=== PATIENT | female | born 1950 | race Caucasian/White ===

== ENCOUNTER 2017-07-23 11:04 | Inpatient (IN) | payer MEDICARE, OTHER ==
[2017-07-23] VITALS (9 sets, daily range): BP systolic 127–145; BP diastolic 68–89; PULSE 58–70; RESP 16–18; TEMP 97.7–98.9; O2SAT 94–98
[2017-07-23] MEDS ORDERED: SYNT112T PO (11:10)
--- NOTE | 2017-07-23 11:29 | PD ---
HPI Chief Complaint: Chest Pain Time Seen by Provider: 11:24 Travel History International Travel<30 days: No Contact w/Intl Traveler<30days: No Traveled to known affect area: No History of Present Illness HPI 66-year-old female patient with history of no significant past medical issues, family history of father with SD at the age of 60, presents to the ER today because she states that she was working out in spinning class yesterday and started having a substernal chest discomfort that went away on its own. She states that she is currently discomfort free but it did occur again last night. She thought it may have worsened with eating. She denies any nausea, vomiting , abdominal pain, shortness of breath, or any other symptoms. She is currently chest pain-free. Modifying Factors: None Associated Signs & Symptoms: Chest discomfort Risk Factors: Family history of cardiac disease PFSH Past Medical History Thyroid Disease: Yes Influenza Vaccination: No ?: Not Past Surgical History Cholecystectomy: Yes Social History Alcohol Use: Yes (DAILY WINE 2 GLASSES) Tobacco Use: No Substance Use: No Allergies-Medications (Allergen,Severity, Reaction): Coded Allergies: No Known Allergies (Verified Allergy, Mild, 07/23/17) Reported Meds & Prescriptions Reported Meds & Active Scripts Active Reported Synthroid (Levothyroxine Sodium) 112 Mcg Tab 112 Mcg PO DAILY Review of Systems Except as stated in HPI: all other systems reviewed are Neg Physical Exam Narrative GENERAL: Well-developed elderly white female patient currently in mild distress. Awake and oriented 3. SKIN: Focused skin assessment warm/dry. HEAD: Atraumatic. Normocephalic. EYES: Pupils equal and round. No scleral icterus. No injection or drainage. ENT: No nasal bleeding or discharge. Mucous membranes pink and moist. NECK: Trachea midline. No JVD. CARDIOVASCULAR: Regular rate and rhythm. No murmur appreciated. Pulses are present and equal bilaterally. RESPIRATORY: No accessory muscle use. Clear to auscultation. Breath sounds equal bilaterally. GASTROINTESTINAL: Abdomen soft, non-tender, nondistended. Hepatic and splenic margins not palpable. MUSCULOSKELETAL: No obvious deformities. No clubbing. No cyanosis. No edema. NEUROLOGICAL: Awake and alert. No obvious cranial nerve deficits. Motor grossly within normal limits. Normal speech. PSYCHIATRIC: Appropriate mood and affect; insight and judgment normal. Data Data Last Documented VS Vital Signs Date Time Temp Pulse Resp B/P (MAP) Pulse Ox O2 Delivery O2 Flow Rate FiO2 07/23/17 11:29 96 07/23/17 11:29 Room Air 07/23/17 11:15 66 18 07/23/17 11:11 97.7 139/79 (99) Orders Orders Electrocardiogram (07/23/17 11:18) Complete Blood Count With Diff (07/23/17 11:18) Basic Metabolic Panel (Bmp) (07/23/17 11:18) Ckmb (Isoenzyme) Profile (07/23/17 11:18) Troponin I (07/23/17 11:18) Chest, Single Ap (07/23/17 11:18) Iv Access Insert/Monitor (07/23/17 11:18) Ecg Monitoring (07/23/17 11:18) Oxygen Administration (07/23/17 11:18) Oximetry (07/23/17 11:18) Sodium Chlor 0.9% 1000 Ml Inj (Ns 1000 M (07/23/17 11:57) Aspirin Chew (Aspirin Chew) (07/23/17 11:57) Heparin Inj (Heparin Inj) (07/23/17 11:57) Admit Order (Ed Use Only) (07/23/17 12:21) Admit To Inpatient (07/23/17 ) Vital Signs (Adult) JUSTIN.Q4H (07/23/17 12:20) Activity Bed Rest (07/23/17 12:20) Creative Services Producer / Telemetry JUSTIN.Q8H (07/23/17 12:20) Inpatient Certification (07/23/17 ) Atorvastatin (Lipitor) (07/23/17 12:30) Atorvastatin (Lipitor) (07/24/17 21:00) Labs Laboratory Tests Test 07/23/17 11:15 White Blood Count 9.0 TH/MM3 Red Blood Count 5.76 MIL/MM3 Hemoglobin 18.2 GM/DL Hematocrit 54.5 % Mean Corpuscular Volume 94.7 FL Mean Corpuscular Hemoglobin 31.6 PG Mean Corpuscular Hemoglobin Concent 33.4 % Red Cell Distribution Width 13.6 % Platelet Count 312 TH/MM3 Mean Platelet Volume 7.9 FL Neutrophils (%) (Auto) 78.1 % Lymphocytes (%) (Auto) 15.5 % Monocytes (%) (Auto) 3.6 % Eosinophils (%) (Auto) 1.6 % Basophils (%) (Auto) 1.2 % Neutrophils # (Auto) 7.1 TH/MM3 Lymphocytes # (Auto) 1.4 TH/MM3 Monocytes # (Auto) 0.3 TH/MM3 Eosinophils # (Auto) 0.1 TH/MM3 Basophils # (Auto) 0.1 TH/MM3 CBC Comment DIFF FINAL Differential Comment Blood Urea Nitrogen 13 MG/DL Creatinine 0.78 MG/DL Random Glucose 88 MG/DL Calcium Level 8.6 MG/DL Sodium Level 140 MEQ/L Potassium Level 3.7 MEQ/L Chloride Level 105 MEQ/L Carbon Dioxide Level 27.9 MEQ/L Anion Gap 7 MEQ/L Estimat Glomerular Filtration Rate 74 ML/MIN Total Creatine Kinase 50 U/L Troponin I 0.62 NG/ML [facility] Medical Decision Making Medical Screen Exam Complete: Yes Emergency Medical Condition: Yes Medical Record Reviewed: Yes Interpretation(s) EKG shows normal sinus rhythm at a rate of [address]-T wave changes in V2 through V4. Laboratory Tests Test 07/23/17 11:15 Red Blood Count 5.76 MIL/MM3 (4.00-5.30) Hemoglobin 18.2 GM/DL (11.6-15.3) Hematocrit 54.5 % (35.0-46.0) Neutrophils (%) (Auto) 78.1 % (16.0-70.0) Estimat Glomerular Filtration Rate 74 ML/MIN (>89) Troponin I 0.62 NG/ML (0.02-0.05) Differential Diagnosis ACS versus dysrhythmias versus anxiety attack versus GI Narrative Course Patient is currently chest pain-free in the ER. EKG change is concerning for underlying cardiac issues, and case was discussed with Dr. Barajas, EKG techs to Dr. Barajas who states that he is concerned. Cardiac enzymes returned with elevated troponin of 0.62. He states that he would like the patient to be admitted to medicine, heparin started, nothing by mouth, echo, and he states he is going to try to take her for catheterization for further treatment. Case was then discussed with Dr. Spencer for admission. Diagnosis Primary Impression: Chest pain Additional Impression: Non-ST elevation SD (NSTEMI) Admitting Information Admitting Physician Requests: Admit Judit Champion MD Jul 23, 2017 11:29
[2017-07-23 11:34] LABS: POTASSIUM 3.7 MEQ/L (3.5-5.1)
[2017-07-23 11:37] LABS: BICARBONATE 27.9 MEQ/L (21.0-32.0)
[2017-07-23 11:40] LABS: AUTOMATED NEUTROPHIL # 7.1 TH/MM3 (1.8-7.7); BASOPHIL # 0.1 TH/MM3 (0-0.2); BASOPHIL % 1.2 % (0.0-2.0); EOSINOPHIL # 0.1 TH/MM3 (0-0.4); EOSINOPHIL % 1.6 % (0.0-4.0); HEMATOCRIT 54.5 % (35.0-46.0); HEMO FLAGS DIFF FINAL; LYMPH % 15.5 % (9.0-44.0); LYMPHOCYTE # 1.4 TH/MM3 (1.0-4.8); MEAN CELL VOLUME 94.7 FL (80.0-100.0); MEAN CORPUSCULAR HEMOGLOBIN 31.6 PG (27.0-34.0); MEAN CORPUSCULAR HGB CONC 33.4 % (32.0-36.0); MONO % 3.6 % (0.0-8.0); NEUT % 78.1 % (16.0-70.0); PLATELET COUNT 312 TH/MM3 (150-450); RED BLOOD COUNT 5.76 MIL/MM3 (4.00-5.30); RED CELL DISTRIBUTION WIDTH 13.6 % (11.6-17.2)
--- NOTE | 2017-07-23 11:44 | RADRPT ---
EXAM DATE/TIME: 07/23/2017 11:29 [facility] COMPARISON: No previous studies available for comparison. INDICATIONS : Chest pain MEDICAL HISTORY : None. SURGICAL HISTORY : None. ENCOUNTER: Initial ACUITY: 2 days PAIN SCORE: 8/10 LOCATION: Bilateral chest FINDINGS: Lungs are hyperinflated but otherwise clear. Heart is at the upper limits of normal in size to mildly enlarged. Next next Osseous structures are intact. CONCLUSION: 1. COPD. 2. Borderline cardiomegaly. 3. No acute cardiopulmonary process. Steven Moore MD on July 23, 2017 at 11:41 Board Certified Radiologist. This report was verified electronically.
[2017-07-23] MEDS ORDERED: SODIUM CHLOR 0.9% 1000 ML INJ 1,000 ML IV ONE (11:57)
[2017-07-23] MEDS ORDERED: HEPARIN SODIUM - IV 10,000 UNITS/10 ML VIAL IV PUSH STA (11:57)
[2017-07-23] MEDS ORDERED: ASPIRIN 81 MG CHEW TAB PO STA (11:57)
[2017-07-23] MEDS ORDERED: ATORVASTATIN 40 MG TAB PO ONE (13:00)
--- NOTE | 2017-07-23 13:29 | HHI.HP ---
HPI Service [facility] Primary Care Physician Sandeep Coulter MD Admission Diagnosis non-ST elevation [place] Diagnoses: Chief Complaint: Chest pain Travel History International Travel<30 Days: No Contact w/Intl Traveler <30 Da: No Traveled to Known Affected Are: No History of Present Illness 66-year-old white female being admitted for myocardial infarction. Patient was in her usual state of health until yesterday during her spent class when she began experiencing some substernal squeezing chest pain that fluctuated up to a 8 out of 10 intensity. She said rest helped a little bit. She went home think he would go away but in the pain recurred. She did have some mild nausea but no vomiting. She denies having any fevers or chills or any shortness of breath. Due to a persistence of the pain being a 3 out of 10 this morning she decided come to the emergency room. She did not take any medications at home for the pain. She says she is a very active person on an exercise level and says she eats healthy, claims she has a good LDL and HDL profile. Review of Systems Except as stated in HPI: all other systems reviewed are Neg Past Family Social History Past Medical History Hypothyroidism Past Surgical History Cholecystectomy, ovarian cyst removal (unsure of which side) Family History Heart attack of her father in his 60s Social History Used to smoke in college, had anymore, drinks about 2 glasses of wine daily, is a retired teacher Physical Exam Vital Signs Vital Signs Date Time Temp Pulse Resp B/P (MAP) Pulse Ox O2 Delivery O2 Flow Rate FiO2 07/23/17 13:07 98.2 67 16 145/89 (107) 96 Room Air 07/23/17 11:29 96 07/23/17 11:29 96 Room Air 07/23/17 11:15 66 18 96 07/23/17 11:11 97.7 66 18 139/79 (99) 96 Physical Exam VS: Afebrile GENERAL: No acute distress, elderly white female, well-nourished SKIN: Warm and dry. EYES: . No scleral icterus. No injection or drainage. ENT: No nasal bleeding or discharge. Mucous membranes pink and moist. CARDIOVASCULAR: Regular rate and rhythm. no murmurs RESPIRATORY: No accessory muscle use. Clear to auscultation. Breath sounds equal bilaterally. GASTROINTESTINAL: Abdomen soft, non-tender, nondistended. Extremities: No clubbing, cyanosis, or edema. No obvious deformities. MUSCULOSKELETAL: No obvious deformities. grossly intact ROM with 5/5 strength in upper and lower extremities proximally. No substernal tenderness to palpation on chest wall. NEUROLOGICAL: Awake and alert. No obvious cranial nerve deficits. No facial droop nor slurred speech noted. PSYCHIATRIC: Appropriate mood and affect; insight and judgment normal. Laboratory Laboratory Tests Test 07/23/17 11:15 White Blood Count 9.0 Red Blood Count 5.76 Hemoglobin 18.2 Hematocrit 54.5 Mean Corpuscular Volume 94.7 Mean Corpuscular Hemoglobin 31.6 Mean Corpuscular Hemoglobin Concent 33.4 Red Cell Distribution Width 13.6 Platelet Count 312 Mean Platelet Volume 7.9 Neutrophils (%) (Auto) 78.1 Lymphocytes (%) (Auto) 15.5 Monocytes (%) (Auto) 3.6 Eosinophils (%) (Auto) 1.6 Basophils (%) (Auto) 1.2 Neutrophils # (Auto) 7.1 Lymphocytes # (Auto) 1.4 Monocytes # (Auto) 0.3 Eosinophils # (Auto) 0.1 Basophils # (Auto) 0.1 CBC Comment DIFF FINAL Differential Comment Blood Urea Nitrogen 13 Creatinine 0.78 Random Glucose 88 Calcium Level 8.6 Sodium Level 140 Potassium Level 3.7 Chloride Level 105 Carbon Dioxide Level 27.9 Anion Gap 7 Estimat Glomerular Filtration Rate 74 Total Creatine Kinase 50 Troponin I 0.62 Result Diagram: 07/23/17 1115 07/23/171114 Caprini VTE Risk Assessment Caprini VTE Risk Assessment: Mod/High Risk (score >= 2) Caprini Risk Assessment Model Point Value = 1 Point Value = 2 Point Value = 3 Point Value = 5 Age 41-60 Minor surgery BMI > 25 kg/m2 Swollen legs Varicose veins or History of unexplained or recurrent spontaneous Oral contraceptives or hormone replacement Sepsis (< 1 month) Serious lung disease, including pneumonia (< 1 month) Abnormal pulmonary function Acute myocardial infarction Congestive heart failure (< 1 month) History of inflammatory bowel disease Medical patient at bed rest Age 61-74 Arthroscopic surgery Major open surgery (> 45 min) Laparoscopic surgery (> 45 min) Malignancy Confined to bed (> 72 hours) Immobilizing plaster cast Central venous access Age >= 75 History of VTE Family history of VTE Factor V Leiden Prothrombin [id number] Lupus anticoagulant Anticardiolipin antibodies Elevated serum homocysteine Heparin-induced thrombocytopenia Other congenital or acquired thrombophilia Stroke (< 1 month) Elective arthroplasty Hip, pelvis, or leg fracture Acute spinal cord injury (< 1 month) Prophylaxis Regimen Total Risk Factor Score Risk Level Prophylaxis Regimen 0-1 Low Early ambulation 2 Moderate Order ONE of the following: *Sequential Compression Device (SCD) *Heparin 5000 units SQ BID 3-4 Higher Order ONE of the following medications: *Heparin 5000 units SQ TID *Enoxaparin/Lovenox 40 mg SQ daily (WT < 150 kg, CrCl > 30 mL/min) *Enoxaparin/Lovenox 30 mg SQ daily (WT < 150 kg, CrCl > 10-29 mL/min) *Enoxaparin/Lovenox 30 mg SQ BID (WT < 150 kg, CrCl > 30 mL/min) AND/OR *Sequential Compression Device (SCD) 5 or more Highest Order ONE of the following medications: *Heparin 5000 units SQ TID (Preferred with Epidurals) *Enoxaparin/Lovenox 40 mg SQ daily (WT < 150 kg, CrCl > 30 mL/min) *Enoxaparin/Lovenox 30 mg SQ daily (WT < 150 kg, CrCl > 10-29 mL/min) *Enoxaparin/Lovenox 30 mg SQ BID (WT < 150 kg, CrCl > 30 mL/min) AND *Sequential Compression Device (SCD) Assessment and Plan Assessment and Plan 66-year-old white female being admitted for an NSTEMI. I independently reviewed EKG and it does so signs of significant T-wave inversion within the anterior leads. Troponin is elevated significantly. Patient will be transferred to cardiac intensive care with possible plan for cardiac catheterization today. Heparin has already been started as well as aspirin. I will dose the patient with high intensity of atorvastatin and Lopressor. We'll continue the patient's home Synthroid. Cardiology consulted. D /w ER attending. Trend troponins. Telemery. Case d/w pt. Physician Certification 2 Midnight Certification Type: Admission for Inpatient Services Order for Inpatient Services The services are ordered in accordance with Medicare regulations or non- Medicare payer requirements, as applicable. In the case of services not specified as inpatient-only, they are appropriately provided as inpatient services in accordance with the 2-midnight benchmark. Estimated LOS (days): 2 2 days is the estimated time the patient will need to remain in the hospital, assuming treatment plan goals are met and no additional complications. Post-Hospital Plan: Home Mauricio Spencer MD Jul 23, 2017 13:29
[2017-07-23] MEDS ORDERED: METOPROLOL TARTRATE 25 MG TAB PO ONE (14:00)
[2017-07-23] MEDS ORDERED: HEPARIN-D5W 25,000 U/250 ML 250 ML IV PRN (14:00)
[2017-07-23 14:28] LABS: HEMATOCRIT 58.8 % (35.0-46.0); MEAN CELL VOLUME 95.1 FL (80.0-100.0); MEAN CORPUSCULAR HEMOGLOBIN 30.5 PG (27.0-34.0); MEAN CORPUSCULAR HGB CONC 32.1 % (32.0-36.0); PLATELET COUNT 314 TH/MM3 (150-450); RED BLOOD COUNT 6.19 MIL/MM3 (4.00-5.30); REVIEW FLAG FINAL; WHITE BLOOD COUNT 9.2 TH/MM3 (4.0-11.0)
[2017-07-23 14:35] LABS: APTT (PATIENT) 24.7 SEC (24.3-30.1); INTERNATIONAL NORMALIZED RATIO 1.1 RATIO; PROTHROMBIN TIME - PATIENT 11.4 SEC (9.8-11.6)
[2017-07-23] MEDS: LEVOTHYROXINE SODIUM 112 MCG TAB PO SCH (15:17)
--- NOTE | 2017-07-23 15:47 | PD.CONS ---
HPI Consult Requested By Primary Care Physician Sandeep Coulter MD History of Present Illness 66 y/o F with pmhx significant for hypothyroidism and family hx of CAD who her usual state of health until yesterday during her spinning class when she began experiencing substernal squeezing chest pain 8/10 intensity relieved by rest. She went home think he would go away however pain recurred. Pain was associated mild nausea but no vomiting. Denies having any fevers or chills or any shortness of breath. Due to a persistence of the pain being a 3 out of 10 this morning she decided come to the emergency room. In the ER she was found to have elevated troponin/ Cardiology consulted for evaluation and management of ACS. Review of Systems Consitutional: DENIES: Fatigue, Fever, Chills, Weight gain, Weight loss Eyes: DENIES: Amaurosis Fugax, Change in vision HEENT: DENIES: Lightheadedness, Change in hearing Respiratory: COMPLAINS OF: See HPI, Shortness of breath, DENIES: Cough, Snoring , Wheezing, Sputum production Cardiovascular: COMPLAINS OF: See HPI, Chest pain, DENIES: Palpitations, Syncope, Tachycardia Gastrointestinal: COMPLAINS OF: Nausea, DENIES: Vomiting, Change in bowel habits, Reflux, Bloody stools, Melena Genitourinary: DENIES: Urinary incontinence, Difficulty voiding Integumentary: DENIES: Rash Neurologic: DENIES: Tingling or numbness, Memory problems, Poor Balance, Stroke symptoms Musculoskeletal: DENIES: Joint pain, Muscle pain, Limited range of motion, Back pain Psychiatric: DENIES: Anxiety, Depression, Sleep disturbances Hematologic: DENIES: Bruising tendencies, Bleeding tendencies Endocrine: DENIES: Weight gain, Weight loss, Thyroid disease Past Family Social History Allergies: Coded Allergies: No Known Allergies (Unverified , 07/23/17) Past Medical History Hypothyroidism Past Surgical History Cholecystectomy, ovarian cyst removal (unsure of which side) Reported Medications Reported Meds & Active Scripts Active Reported Synthroid (Levothyroxine Sodium) 112 Mcg Tab 112 Mcg PO DAILY Active Ordered Medications Current Medications Medications (Trade) Dose Ordered Sig/Keven Route Start Time Stop Time Status Last Admin (Lipitor) 40 mg HS PO 07/24/17 21:00 (Synthroid) 112 mcg DAILY@0600 PO 07/23/17 14:00 07/23/17 15:17 (Heparin Inj) 5,000 units UNSCH PRN IV 07/23/17 20:00 (Heparin Inj) 2,500 units UNSCH PRN IV 07/23/17 20:00 Heparin Sodium/ Dextrose 250 ml @ 8 mls/hr TITRATE PRN IV 07/23/17 14:00 Family History Heart attack of her father in his 60s Social History Used to smoke in college, had anymore, drinks about 2 glasses of wine daily, is a retired teacher Physical Exam Vital Signs Vital Signs Date Time Temp Pulse Resp B/P (MAP) Pulse Ox O2 Delivery O2 Flow Rate FiO2 07/23/17 14:00 07/23/17 13:07 98.2 67 16 145/89 (107) 96 Room Air 07/23/17 11:29 96 07/23/17 11:29 96 Room Air 07/23/17 11:15 66 18 96 07/23/17 11:11 97.7 66 18 139/79 (99) 96 Physical Exam GENERAL: Well-nourished, well-developed patient. SKIN: Warm and dry. HEAD: Normocephalic. EYES: No scleral icterus. No injection or drainage. NECK: Supple, trachea midline. No JVD or lymphadenopathy. CARDIOVASCULAR: Regular rate and rhythm without murmurs, gallops, or rubs. RESPIRATORY: Breath sounds equal bilaterally. No accessory muscle use. GASTROINTESTINAL: Abdomen soft, non-tender, nondistended. EXTREMITIES: No cyanosis, or edema. NEUROLOGICAL: Awake, alert, and oriented x 3. Non-focal. Laboratory Laboratory Tests Test 07/23/17 11:15 White Blood Count 9.2 Red Blood Count 6.19 Hemoglobin 18.9 Hematocrit 58.8 Mean Corpuscular Volume 95.1 Mean Corpuscular Hemoglobin 30.5 Mean Corpuscular Hemoglobin Concent 32.1 Red Cell Distribution Width 14.0 Platelet Count 314 Mean Platelet Volume 8.7 Neutrophils (%) (Auto) 78.1 Lymphocytes (%) (Auto) 15.5 Monocytes (%) (Auto) 3.6 Eosinophils (%) (Auto) 1.6 Basophils (%) (Auto) 1.2 Neutrophils # (Auto) 7.1 Lymphocytes # (Auto) 1.4 Monocytes # (Auto) 0.3 Eosinophils # (Auto) 0.1 Basophils # (Auto) 0.1 CBC Comment DIFF FINAL Differential Comment Prothrombin Time 11.4 Prothromb Time International Ratio 1.1 Activated Partial Thromboplast Time 24.7 Blood Urea Nitrogen 13 Creatinine 0.78 Random Glucose 88 Calcium Level 8.6 Sodium Level 140 Potassium Level 3.7 Chloride Level 105 Carbon Dioxide Level 27.9 Anion Gap 7 Estimat Glomerular Filtration Rate 74 Total Creatine Kinase 50 Troponin I 0.62 Result Diagram: 07/23/17 1115 07/23/17 1115 Imaging Last Impressions Chest X-Ray 07/23/17 1118 Signed Impressions: Service Date/Time: Sunday, July 23, 2017 11:29 - CONCLUSION: 1. COPD. 2. Borderline cardiomegaly. 3. No acute cardiopulmonary process. Steven Moore MD Assessment and Plan Problem List: (1) Non-ST elevation [place] (NSTEMI) ICD Codes: I21.4 - Non-ST elevation (NSTEMI) myocardial infarction Status: Acute Plan: 66 y/o F with NSTEMI, TOMMIE risk score 3, Killip Class I. Currently chest pain free and hemodynamically stable. EKG concerning for ischemia. Recommendations: 1. Heparin drip 2. ASA, BB, ACEi, nitrates 3. ECHO 4. Telemetry 5. Keep NPOt for [facility] (2) Chest pain ICD Codes: R07.9 - Chest pain, unspecified Status: Acute Barajas-Ever Kebede MD Jul 23, 2017 15:47
[2017-07-23] MEDS ORDERED: PILL SPLITTER OTHER PRN (16:30)
[2017-07-23] MEDS ORDERED: NITROGLYCERIN 0.4 MG SL 25 TABS/BTL SL PRN (16:45)
[2017-07-23] MEDS ORDERED: IOHEXOL 350 MG/ML 100 ML BTL (for Cath Lab) OTHER ONE (16:58)
[2017-07-23] MEDS ORDERED: HEPARIN-NS/PF INJ 1,000 ML ONE (17:03)
[2017-07-23] MEDS ORDERED: MIDAZOLAM HCL 2 MG/2 ML VIAL ONE (17:08)
[2017-07-23] MEDS ORDERED: ONDANSETRON HCL 4 MG/2 ML VIAL IV PUSH PRN (18:00)
[2017-07-23] MEDS ORDERED: MISC INFORMATION XX ONE (18:00)
[2017-07-23] MEDS ORDERED: BACITRACIN OINT 0.9 GM PKT TOP ONE (18:00)
[2017-07-23] MEDS ORDERED: LIDOCAINE HCL 1% 50 ML VIAL INFIL PRN (18:00)
[2017-07-23] MEDS ORDERED: ATROPINE SULFATE 1 MG/ML VIAL IV PUSH PRN (18:00)
--- NOTE | 2017-07-23 18:05 | CATHPROC ---
Qoof HIS Report Study Information Study Number Admission Scheduled Start Study Start [id number] Jul 23 2017 12:23PM 07/23/2017 Jul 23 2017 5:01PM [place] [facility] Cardiac Catheterization Admit Source Facility Department Emergency department [facility] - Chief Of Surgery Physician and Clinical Staff Initial Eevr Norris Fat Pressroom Worker Romi Jarvis BSN Recorder Grisel Hernández,RT(R) (BS) Recorder Karan Nur,RT(R) Scrub Reagan Franklin RCIS(BS) Procedures Performed Procedure Location (Site) Vessel Name Coronary Angiograms LCA Left Coronary Coronary Angiograms RCA Right Coronary L Heart Cath LV Gram-hand inj. LV LV Ventricle PTCA ADD ON'S Wire insertion Fem Art (right) Femoral Art Equipment Time Record Press Operator Description Size Mfg Part Number Used/Scraped COPILOT VALVE, BLEEDBACK [id number] 17:29 [employer]PI[employer]O [employer] Used CONTROL *[id number] TRANSDUCER, TRUWAVE [id number] 17:07 HART [employer] * Used W/VENANCIOCK *[id number] 17:40 [employer] MEDICAL VASCADE, FR6 CLOSURE SYSTEM FR 6\7 Used *[id number] INTRODUCER SET, 17:07 [employer] FR 5 [id number] *[id number] Used MICROPUNCTURE, STIFFENED [id number] *[id number] [id number] *[id number] 17:07 go2 media INDUSTRIES PACK, CCL CUSTOM * Used *[id number] 17:28 MEDTRONIC/AVE EBU 3.5 Z2 GUIDE CATHETER FR 6 Used *[id number] 17:27 [employer] MEDICAL 30 JUANY INDEFLATOR Used *[id number] 17:07 Smart[employer] Ants WIRE, 3MMJ .035 180CM 180CM Used *[id number] 17:09 NAMIC MANIFOLD, 4 PORT * Used *[id number] 17:09 NYCOMED OMNIPAQUE, 350 MG, 150ML 150ML [id number] Used 17:07 NYCOMED OMNIPAQUE, 350 MG, 150ML 150ML [id number] Used [id number] 17:07 [employer]OUNT MEDICAL BLANKET,WARM AIR CCL * Used *[id number] 17:07 TERUMO MEDICAL SHEATH, FR5 TERUMO (10CM) FR 5 Used *[id number] 17:29 TERUMO MEDICAL SHEATH, FR6 TERUMO (10CM) FR 6 Used *[id number] 17:29 VOLCANO PRIME WIRE, VERRATA 185CM 185CM 23245 *[id number] Used Equipment Model, Serial, Lot Number and Expiration Data Description Model Number Serial Number Lot Number Expiration Date PRIME WIRE, VERRATA 185CM [id number] 06-12-2020 History: Current Medications Medication Dosage/Unit Route Frequency Last Date/Time Taken ASA Beta Dorian History: Allergies Allergy Reaction No Known Allergies History: Risk Factors Family History of Hypertension Dyslipidemia Previous NC Previous Heart Failure Premature CAD No No Yes No No Prior Valve Prior PCI Prior CABG Surgery No No No Cerebrovascular Peripheral Artery Chronic Lung On Dialysis Diabetes Disease Disease Disease No No No Yes No History: Symptoms/Diagnosis Selection Items Chest pain History: Stress Tests Stress or Imaging Studies Performed No History: Other Current Smoker No Labs Hgb (g/dl) Hct (%) WBC (l/cumm) Platelets (thousands) 11.60-17.00 35.00-51.00 4.00-11.00 150.00-450.00 18.9 58.8 9.2 314 Glucose (mg/dl) BUN (mg/dl) Creatinine (mg/dl) BUN:Creatinine (1:x) 74.00-106.00 7.00-18.00 0.50-1.30 10.00-20.00 88 13 0.7 18.6 Na (meq/l) K (meq/l) 136.00-145.00 3.50-5.10 140 3.7 INR (PTT:PT) 0.90-1.10 1.1 Troponin I (ng/ml) CPK (u/l) CPK-MB (ng/ML) 0.02-0.05 26.00-308.00 0.50-3.60 0.62 50 Not Drawn Medication Medication Total Dose (Bolus/Oral) Medication Total Dosage/Unit 1% XYLOCAINE 20 mL FENTANYL 50 mcg HEPARIN 4500 units OXYGEN 2 l/min VERSED 2 mg Medications (Bolus/Oral) Medication Time Given Dosage/Unit Administered By Reason 1% XYLOCAINE 07/23/2017 5:13:52 PM 20 mL Ever Philip 20 mL 1% XYLOCAINE given in lab by Ever Philip in Right Groin via Subcutaneous. VERSED 07/23/2017 5:13:55 PM 2 mg Romi Jarvis 2 mg VERSED given in lab by Romi Jarvis BSN in Left Antecubital via Peripheral IV. FENTANYL 07/23/2017 5:14:15 PM 50 mcg Romi Jarvis 50 mcg FENTANYL given in lab by Romi Jarvis BSN in Left Antecubital via Peripheral IV. OXYGEN 07/23/2017 5:18:20 PM 2 l/min Romi Jarvis 2 l/min OXYGEN given in lab by Romi Jarvis BSN via Nasal. HEPARIN 07/23/2017 5:27:27 PM 4500 units Romi Jarvis 4500 units HEPARIN given in lab by Romi Jarvis BSN in Left Antecubital via Peripheral IV. Initial Case Assessment Cardiovascular HR Rhythm NIBP Chest Pain 59 reg 142/78 0 Edema Present Skin color Skin None Normal Warm Dry Circulatory - Right Pulses Dorsalis Pedis Femoral 2 2 Scale (0,1,2,3,4,d) Circulatory - Left Pulses Dorsalis Pedis Femoral 2 2 Scale (0,1,2,3,4,d) Circulatory - Lower Extremities Color Lower Right Color Lower Left Normal Normal Neurological State Oriented to time-place- Alert Moves all extremities person Respiration - General Respiration Rate SpO2 (%) (B/min) 17 95 Chronological Log Time Study Chronological Log 16:58:37 Patient arrived via Bed. 16:58:44 Patient Name, D.O.B, / Armband Verified By R.N. 17:00:49 Consent signed by the physician and the patient and verified by the Chief Of Surgery staff. 17:00:49 Pre-op and post- op instructions given; patient acknowledges understanding of instructions. 17:00:50 Verbal Stimulation=2 Physical Stimulation=2 Airway=2 Respiration=2 TOTAL=8. (0=absent, 1=li mited, 2=present) 17:00:52 Presedation assessment performed by Chief Of Surgery RN. 17:00:56 Patient has been NPO for More than 6Hrs. 17:00:58 Skin Breakdown none per pt 17:00:59 Patient Warmer Placed on the Table. 17:01:02 Michelle Prominences Protected 17:01:03 A # 20 IV was noted in the Antecubital (left). Grade = 0 17:01:04 History and physical on the chart or being dictated. Assessment: Initial Case, HR=59 BPM, Rhythm=reg, YJDJ=125/78 mmhg, Chest Pain=0, Edema=None, Co dinorah=Normal, Skin = Warm, Dry Right Pulses: Gulshan Ped=2, Femoral=2 Left Pulses: Gulshan Ped=2, Femoral=2 17:01:05 Lower Right Extremities: Color=Normal Lower Left Extremities: Color=Normal Neurological: State=Alert, Ox3, BEATTY Respiration: Resp=17 B/min, SpO2=95 % Vitals capture started with the following parameters, Patient=Adult, Interval=5 min, Initial Pr iwpygx=027 mmHg, 17:06:20 Deflation Rate=5 mmHg, Cuff placed on Left Arm 17:07:23 HR=60 bpm, IZGT=579/78 mmhg, SpO2=95.0 %, Resp=22 B/min, Pain=0, Ace=10, Tracey=2 17:10:02 Reference ECG taken 17:11:57 HR=64 bpm, CQKQ=143/78 mmhg, SpO2=95 %, Resp=15 B/min, Pain=0, Ace=10, Tracey=2 17:12:21 Pressure channel 1 zeroed. Time Out. Correct patient, correct procedure, correct physician, power injector not loaded with contrast with surgical 17:13:42 team present. Time Out Concurred by MD and individual staff in procedure. 17:13:49 Case Start 17:13:52 20 mL 1% XYLOCAINE given in lab by Ever Philip in Right Groin via Subcutaneous. 17:13:55 2 mg VERSED given in lab by Romi Jarvis BSN in Left Antecubital via Peripheral IV. 17:14:15 50 mcg FENTANYL given in lab by Romi Jarvis BSN in Left Antecubital via Peripheral IV. 17:15:08 Access site was Right Femoral Artery. A INTRODUCER SET, MICROPUNCTURE, STIFFENED FR 5 was advanced into the Fem Art (right) using the 17:15:20 Percutaneous technique. A SHEATH, FR5 TERUMO (10CM) FR 5 was exchanged in the Fem Art (right). This was necessary in or jacqueline to 17:15:57 accomodate a larger catheter. A JR 4.0 INFINITI CATHETER FR 5 was advanced over a wire. OMNIPAQUE, 350 MG, 150ML 150ML was us ed for 17:16:10 injections. 17:16:37 An injection in the Fem Art (right) was made through the SHEATH, FR5 TERUMO (10CM) FR 5. A JR 4.0 INFINITI CATHETER FR 5 was advanced over a wire. OMNIPAQUE, 350 MG, 150ML 150ML was us ed for 17:16:45 injections. 17:17:00 HR=71 bpm, RGSS=997/64 mmhg, SpO2=85.0 %, Resp=16 B/min, Pain=0, Ace=10, Tracey=2 Recorded Pressure: LV, HR=69, Condition=Condition 1 17:17:53 (Left Ventricle) LV 123/5/7 17:18:07 The LV was manually injected with 8 cc's and visualized. OMNIPAQUE, 350 MG, 150ML 150ML use d. 17:18:20 2 l/min OXYGEN given in lab by Romi Jarvis BSN via Nasal. Recorded Pressure: LV, Ao, HR=67, Condition=Condition 1 17:18:30 (Left Ventricle) LV 125/3/6, (Aorta) Ao 124/59/89 Recorded Pressure: Ao, HR=66, Condition=Condition 1 17:18:48 (Aorta) Ao 124/63/89 17:19:02 The RCA was injected and visualized at various angles. OMNIPAQUE, 350 MG, 150ML 150ML used . 17:19:18 Catheter was removed A JL 4.0 INFINITI CATHETER FR 5 was advanced over a wire. OMNIPAQUE, 350 MG, 150ML 150ML was us ed for 17:19:21 injections. 17:20:26 The LCA was injected and visualized at various angles. OMNIPAQUE, 350 MG, 150ML 150ML used . 17:21:55 HR=65 bpm, SJIN=731/64 mmhg, SpO2=90.0 %, Resp=16 B/min, Pain=0, Ace=10, Tracey=2 17:23:44 Catheter was removed A SHEATH, FR6 TERUMO (10CM) FR 6 was exchanged in the Fem Art (right). This was necessary in or jacqueline to 17:26:09 accomodate a larger catheter. 17:27:18 OMNIPAQUE, 350 MG, 150ML 150ML and 30 JUANY INDEFLATOR added. 17:27:27 4500 units HEPARIN given in lab by Romi Jarvis BSN in Left Antecubital via Periphe ral IV. 17:27:37 HR=61 bpm, DSFT=587/63 mmhg, SpO2=92.0 %, Resp=17 B/min, Pain=0, Cae=10, Tracey=2 A EBU 3.5 Z2 GUIDE CATHETER FR 6 was advanced over a wire. OMNIPAQUE, 350 MG, 150ML 150ML was used for 17:27:48 injections. 17:30:43 A PRIME WIRE, VERRATA 185CM 185CM was inserted via Fem Art (right). 17:32:28 HR=61 bpm, CHDM=712/66 mmhg, SpO2=92.0 %, Resp=13 B/min, Pain=0, Ace=10, Tracey=2 17:32:56 Flow Wire was was placed in the LAD Prox. The FFR measures ~FFR~ percent. The IFR measures 0.92 Percent. 17:36:55 HR=62 bpm, TVBL=031/68 mmhg, SpO2=94.0 %, Resp=19 B/min, Pain=0, Ace=10, Tracey=2 17:39:58 The wire was removed. 17:40:01 Catheter was removed 17:40:10 VASCADE, FR6 CLOSURE SYSTEM FR 6\7 placement in the Fem Art (right) 17:41:56 HR=60 bpm, WRTR=919/76 mmhg, SpO2=94.0 %, Resp=16 B/min, Pain=0, Ace=10, Tracey=2 17:42:17 Case End 17:42:22 Catheter(s) removed without difficulty 17:42:30 No case complications noted. 17:42:35 Implantable Device card placed in patient's chart. 17:42:41 Bedside Report will be given. 17:42:45 Pressure being held on site 17:42:49 A Left Heart Cath was performed. 17:46:59 HR=60 bpm, RSHA=995/75 mmhg, SpO2=94.0 %, Resp=20 B/min, Pain=0, Ace=10, Tracey=2 17:51:42 Sterile dressing applied to site 17:51:58 HR=56 bpm, VZJA=558/70 mmhg, SpO2=94.0 %, Resp=7 B/min, Pain=0, Ace=10, Tracey=2 17:52:30 Pressure being held on site 17:56:59 HR=58 bpm, STJD=780/75 mmhg, SpO2=94.0 %, Resp=12 B/min, Pain=0, Ace=10, Tracey=2 18:02:00 HR=58 bpm, HSWE=086/74 mmhg, SpO2=94.0 %, Resp=16 B/min, Pain=0, Ace=10, Tracey=2 18:04:58 Vitals capture stopped. 18:07:02 Patient moved to [facility] End Study - Contrast Media Used In Study Contrast Total Opened (mL) Total Used (mL) Total Wasted (mL) Omnipaque 100 100 0 End Study - Maximum Contrast Load Max Contrast Load (mL) 457.1 End Study - Radiation Exposure Fluoro Time (minutes) 5.5 End Study - Sheaths Sheaths Pulled By Sheath Hold Time (min) Ever Philip End Study - Patient Disposition Complications Transferred To Interventional Outcome No Telemetry Bed No attempt made
[2017-07-23] MEDS ORDERED: HEPARIN SODIUM - IV 10,000 UNITS/10 ML VIAL ONE (18:35)
--- NOTE | 2017-07-23 19:25 | MA ---
cc: MAUROJeronimoMALINDARADHA Bowen DATE 07/23/2017 DATE OF 1950 PROCEDURES PERFORMED 1. Left heart catheterization. 2. Selective coronary angiography. 3. Left ventriculogram. INDICATION Chest pain, [id number]-eiimqqcyi [place], elevated troponins. APPROACH Right transfemoral. DESCRIPTION OF PROCEDURE Consent signed. The patient was brought into the cardiac cath in fasting state. The right groin was prepped and draped in sterile fashion. Using 1% lidocaine for local anesthesia and a micropuncture kit, a 5-Swedish sheath was inserted into the right common femoral artery. A right common femoral artery angiography was performed to confirm position of the sheath. Then selective right and left coronary angiography was performed with a JR-4 and JL-4 diagnostic catheters. Angiography was taken in multiple views. The JR-4 diagnostic catheter was introduced over the wire to the ventricle. It was followed by pressure recordings, left ventriculogram and pullback. We identified a lesion in the proximal LAD of questionable significance for which we performed an IFR. For this the 5-Swedish sheath was up sized to a 6-Swedish sheath. Heparin was given for IV anticoagulation. The left main was engaged with a EBU 3.5 guide. This was followed by equalizing and normalizing the pressure wire outside the body, then normalizing it before crossing the lesion. Then we did IFR. The IFR value was 0.92 which is negative for ischemia for which no intervention was done. This concluded our procedure. The patient tolerated the procedure well without complications. Estimated blood loss less than 5 mL. Total contrast used 100 mL. The right groin access site was closed with a VASCADE closure device. RESULTS LEFT VENTRICLE The left ventricular pressure was 125/3 with an LVEDP of 6. The aortic pressure was 124/63 with a mean of 89. There was no gradient upon pullback from the left ventricle to the aorta. A ventriculogram revealed an asymmetrically marie ventricle. Estimated ejection fraction of 60%. There appears to be some hypokinesis of the anterior wall.. ANGIOGRAPHIC RESULTS 1. Left main is giving off the LAD and the left circumflex artery. The left main is patent with TOMMIE III flow, nonobstructive coronary artery disease. 2. LAD is tortuous. It has a proximal 40% lesion with TOMMIE III flow. Nonobstructive coronary artery disease. It is giving one prominent diagonal which is patent and tortuous as well. 3. The left circumflex artery is tortuous, patent, OTMMIE III flow. It is giving three OM vessels which are also tortuous with TOMMIE III flow, nonobstructive coronary artery disease. 4. The right coronary artery is a dominant vessel giving off the PDA. It is also a tortuous vessel. It has nonobstructive coronary artery disease and TOMMIE III flow throughout. CONCLUSION Nonobstructive coronary artery disease, preserved systolic function, normal LVEDP. RECOMMENDATIONS The patient will go back to the [facility] for post cath care. She will need primary prevention for CAD with optimization of medication for blood pressure and therapeutic lifestyle changes. The patient should follow with cardiology upon discharge. Thank you for the opportunity to take part in the care of this patient. MD DALE Alvarez/KK /5:45 PM /7:01 PM ANGELIA
[2017-07-23] MEDS ORDERED: HEPARIN SODIUM - IV 10,000 UNITS/10 ML VIAL IV PRN ×2 (20:00)
--- NOTE | 2017-07-23 20:33 | EKG ---
Date Performed: 07/23/2017 Time Performed: 11:06:49 PTAGE: 66 years EKG: Sinus rhythm LEFT ATRIAL ENLARGEMENT ST DEVIATION AND MARKED T-WAVE ABNORMALITY, CONSIDER ANTERIOR ISCHEMIA Anter ior ST elevation with T wave inversions are present and new since prior tracing, consider acute anter ior Myocardial infarction Clinical correlation is recommended ABNORMAL ECG PREVIOUS TRACING : 02/21/1993 11.45 DOCTOR: Valeriy Li Interpretating Date/Time 07/23/2017 20:32:16
[2017-07-23 21:56] LABS: APTT (PATIENT) 25.6 SEC (24.3-30.1)
[2017-07-24] VITALS (13 sets, daily range): BP systolic 124–130; BP diastolic 68–78; PULSE 61–76; RESP 16; TEMP 97.9–98.9; O2SAT 94–96
[2017-07-24] MEDS: LEVOTHYROXINE SODIUM 112 MCG TAB PO SCH (06:08)
[2017-07-24] MEDS ORDERED: ASPIRIN 81 MG CHEW TAB PO SCH (09:00)
[2017-07-24] MEDS ORDERED: METOPROLOL TARTRATE 25 MG TAB PO SCH (09:00)
[2017-07-24] MEDS ORDERED: LISINOPRIL 10 MG TAB PO SCH (09:00)
--- NOTE | 2017-07-24 14:04 | HHI.PR ---
Subjective Remarks in no acute distress. denies chest pain or sob. no new complaints. wants to go home today. Objective Vitals Vital Signs Date Time Temp Pulse Resp B/P (MAP) Pulse Ox O2 Delivery O2 Flow Rate FiO2 07/24/17 11:00 68 07/24/17 10:00 74 07/24/17 09:00 74 07/24/17 08:00 98.9 72 16 124/71 (88) 94 07/24/17 08:00 66 07/24/17 06:00 61 07/24/17 05:00 66 07/24/17 04:00 61 07/24/17 03:30 97.9 64 16 130/78 (95) 96 07/24/17 03:00 67 07/24/17 02:00 70 07/24/17 01:00 65 07/24/17 00:00 66 07/23/17 23:00 98.9 65 16 127/68 (87) 95 07/23/17 23:00 64 07/23/17 22:00 66 07/23/17 21:00 68 07/23/17 20:00 97.8 64 16 131/75 (93) 94 07/23/17 20:00 70 07/23/17 19:00 58 07/23/17 16:00 63 07/23/17 16:00 97.9 63 16 136/82 (100) 98 I/O 07/23/17 07/23/17 07/23/17 07/24/17 07/24/17 07/24/17 07:00 15:00 23:00 07:00 15:00 23:00 Intake Total 480 ml Output Total 600 ml Balance -120 ml Intake Oral 480 ml Output Urine Total 600 ml # Bowel Movements 0 Result Diagram: 07/23/17 1115 07/23/17 1115 Imaging Last Impressions Chest X-Ray 07/23/17 1118 Signed Impressions: Service Date/Time: Sunday, July 23, 2017 11:29 - CONCLUSION: 1. COPD. 2. Borderline cardiomegaly. 3. No acute cardiopulmonary process. Steven Moore MD Objective Remarks GENERAL: This is a well-nourished, well-developed patient, in no apparent distress. CARDIOVASCULAR: Regular rate and regular rhythm without murmurs, gallops, or rubs. RESPIRATORY: Clear to auscultation. Breath sounds equal bilaterally. No wheezes , rales, or rhonchi. GASTROINTESTINAL: Abdomen soft, non-tender, nondistended. Normal, active bowel sounds MUSCULOSKELETAL: Extremities without clubbing, cyanosis, or edema. NEURO: Alert & Oriented x4 to person, place, time, situation. Moves all ext x4 Procedures cardiac catheterization. Medications and IVs Inpatient Medications Aspirin (Aspirin Chew) 81 mg DAILY PO Last administered on 07/24/17 08:56; Start 07/24/17 at 09:00 Atorvastatin Calcium (Lipitor) 80 mg HS PO ; Start 07/24/17 at 21:00 Atropine Sulfate (Atropine Inj) 0.5 mg UNSCH PRN IV PUSH VAGAL REPONSE; Start 07/23/17 at 18:00 Bacitracin (Bacitracin Oint Packet) 0.9 gm ONCE ONCE TOP ; Start 07/23/17 at 18:00; Stop 07/23/17 at 18:23; Status DC Heparin Sodium (Porcine) (Heparin Inj) 2,500 units UNSCH PRN IV APTT 25 TO 39; Start 07/23/17 at 20:00; Stop 07/23/17 at 20:00; Status DC Heparin Sodium/ Dextrose 250 ml @ 8 mls/hr TITRATE PRN IV Coagulation Management; Start 07/23/17 at 14:00; Stop 07/23/17 at 18:25; Status DC Levothyroxine Sodium (Synthroid) 112 mcg DAILY@0600 PO Last administered on 06:08; Start 07/23/17 at 14:00 Lidocaine HCl (Xylocaine 1% Inj (50 ml)) 10 ml UNSCH PRN INFIL SHEATH REMOVAL; Start 07/23/17 at 18:00; Stop 07/24/17 at 17:59 Lisinopril (Prinivil) 10 mg DAILY PO Last administered on 07/24/17 09:00; Start 07/24/17 at 09:00 Metoprolol Tartrate (Lopressor) 12.5 mg Q12HR PO Last administered on 08:56; Start 07/24/17 at 09:00 Miscellaneous (Pill Splitter) 1 ea UNSCH PRN OTHER SEE LABEL COMMENTS; Start 07/23/17 at 16:30 Miscellaneous Information 1 ONCE ONCE XX ; Start 07/23/17 at 18:00; Stop 06/29 at 18:22; Status DC Nitroglycerin (Nitrostat Sl) 0.4 mg Q5M PRN SL CHEST PAIN; Start 07/23/17 at 16:45 Ondansetron HCl (Zofran Inj) 4 mg Q4H PRN IV PUSH NAUSEA; Start 07/23/17 at 18 :00 Sodium Chloride 1,000 ml @ 0 mls/hr Q0M ONCE IV Last administered on t 12:16; Start 07/23/17 at 11:57; Stop 07/23/17 at 11:59; Status DC A/P Assessment and Plan A/P - elevated troponin s/p cardiac cath with nonobstructive CAD will discharge on aspirin, BB and statin. -hypothyroidism; continue home meds. Discharge Planning dc home. see med list. f/u; pcp and cardiology. d/w the patient and RN. Dyan Lancaster MD Jul 24, 2017 14:04
[2017-07-24] MEDS ORDERED: LIPI10TA PO (14:05)
[2017-07-24] MEDS ORDERED: METO25TA3 PO (14:05)
[2017-07-24] MEDS ORDERED: ASPI81 PO (14:05)
--- NOTE | 2017-07-24 14:07 | HHI.DS ---
Discharge Summary Admission Date Jul 23, 2017 at 12:23 Discharge Date: Jul 24, 2017 Admitting Diagnosis non-ST elevation CO (1) Non-ST elevation CO (NSTEMI) ICD Code: I21.4 - Non-ST elevation (NSTEMI) myocardial infarction Status: Acute Procedures cardiac catheterization. Brief History - From Admission 66-year-old white female being admitted for myocardial infarction. Patient was in her usual state of health until yesterday during her spent class when she began experiencing some substernal squeezing chest pain that fluctuated up to a 8 out of 10 intensity. She said rest helped a little bit. She went home think he would go away but in the pain recurred. She did have some mild nausea but no vomiting. She denies having any fevers or chills or any shortness of breath. Due to a persistence of the pain being a 3 out of 10 this morning she decided come to the emergency room. She did not take any medications at home for the pain. She says she is a very active person on an exercise level and says she eats healthy, claims she has a good LDL and HDL profile. CBC/BMP: 07/23/17 1115 07/23/17 1115 Significant Findings Laboratory Tests Test 07/23/17 11:15 07/23/17 18:34 07/23/17 20:52 Red Blood Count 6.19 MIL/MM3 (4.00-5.30) Hemoglobin 18.9 GM/DL (11.6-15.3) Hematocrit 58.8 % (35.0-46.0) Neutrophils (%) (Auto) 78.1 % (16.0-70.0) Estimat Glomerular Filtration Rate 74 ML/MIN (>89) Troponin I 0.62 NG/ML (0.02-0.05) 0.43 NG/ML (0.02-0.05) Triglycerides Level 31 MG/DL (42-150) LDL Cholesterol 113 MG/DL (0-99) HDL Cholesterol 77.0 MG/DL (40.0-60.0) Imaging Last Impressions Chest X-Ray 07/23/17 1118 Signed Impressions: Service Date/Time: Sunday, July 23, 2017 11:29 - CONCLUSION: 1. COPD. 2. Borderline cardiomegaly. 3. No acute cardiopulmonary process. Steven Moore MD PE at Discharge GENERAL: This is a well-nourished, well-developed patient, in no apparent distress. CARDIOVASCULAR: Regular rate and regular rhythm without murmurs, gallops, or rubs. RESPIRATORY: Clear to auscultation. Breath sounds equal bilaterally. No wheezes , rales, or rhonchi. GASTROINTESTINAL: Abdomen soft, non-tender, nondistended. Normal, active bowel sounds MUSCULOSKELETAL: Extremities without clubbing, cyanosis, or edema. NEURO: Alert & Oriented x4 to person, place, time, situation. Moves all ext x4 Hospital Course patient was admitted with NSTEMI. cardiology consulted and she underwent cardiac cath with nonobstructive CAD. she will be discharged home with f/u by her PCP and cardiology. Pt Condition on Discharge: Good Discharge Disposition: Discharge Home Discharge Time: <= 30 minutes Discharge Instructions DIET: Follow Instructions for: Heart Healthy Diet Activities you can perform: Regular-No Restrictions Follow up Referrals: Cardiology PCP Follow-up New Medications: Atorvastatin (Lipitor) 10 Mg Tab 10 MG PO HS for Cholesterol Management, #30 TAB 0 Refills Aspirin (Tgt Aspirin) 81 Mg Chw 81 MG PO DAILY for cad for 30 Days, EA 0 Refills Metoprolol Tartrate (Metoprolol Tartrate) 25 Mg Tab 12.5 MG PO DAILY for cad for 30 Days, #15 TAB 0 Refills Continued Medications: Levothyroxine (Synthroid) 112 Mcg Tab 112 MCG PO DAILY for Thyroid, #30 TAB 0 Refills Dyan Lancaster MD Jul 24, 2017 14:07
--- NOTE | 2017-07-24 14:33 | HHI.PR ---
Addendum To [facility] Progress Not Reason for addendum: Additonal documentation (tried to discuss with the patient again about the duischarge medications and follow-ups. it seems that the patient left without notifying the nursing staff.) Dyan Lancaster MD Jul 24, 2017 14:32
--- NOTE | 2017-07-24 15:06 | ECHRPT ---
Indication: CORONARY ATHEROSCLEROSIS CONCLUSIONS Normal left ventricular size. Wall thickness is normal. The left ventricular systolic function is normal with an estimated ejection fraction of 65%. There is trace tricuspid valve regurgitation. The estimated pulmonary arterial pressure is 24 mmHg. BP: 145 / 89 HR: 70 Rhythm: Sinus MEASUREMENTS (Male / Female) Normal Values Technical Quality:Fair 2D ECHO LV Diastolic Diameter PLAX 4.4 cm 4.2 - 5.9 / 3.9 - 5.3 cm LV Systolic Diameter PLAX 3.1 cm IVS Diastolic Thickness 0.8 cm 0.6 - 1.0 / 0.6 - 0.9 cm LVPW Diastolic Thickness 0.8 cm 0.6 - 1.0 / 0.6 - 0.9 cm LV Relative Wall Thickness 0.4 RV Internal Dim ED PLAX 2.6 cm LVOT Diameter 1.9 cm Aortic Root Diameter 3.2 cm LA Systolic Diameter LX 2.6 cm 3.0 - 4.0 / 2.7 - 3.8 cm M-MODE AV Cusp Separation MM 2.2 cm DOPPLER AV Peak Velocity 116.0 cm/s AV Peak Gradient 5.4 mmHg AV Mean Gradient 2.0 mmHg AV Velocity Time Integral 19.2 cm LVOT Peak Velocity 79.0 cm/s LVOT Peak Gradient 2.5 mmHg LVOT Velocity Time Integral 15.0 cm LVOT Cardiac Index 1711.1 cm/minm AV Area Cont Eq vti 2.2 cm AV Area Cont Eq pk 1.9 cm Mitral E Point Velocity 57.8 cm/s Mitral A Point Velocity 65.6 cm/s Mitral E to A Ratio 0.9 LV E' Lateral Velocity 10.3 cm/s Mitral E to LV E' Lateral Ratio 5.6 LV E' Septal Velocity 6.8 cm/s Mitral E to LV E' Septal Ratio 8.5 TR Peak Velocity 185.0 cm/s TR Peak Gradient 13.7 mmHg Right Atrial Pressure 10.0 mmHg Pulmonary Artery Systolic Pressu 23.7 mmHg Right Ventricular Systolic Press 23.7 mmHg PV Peak Velocity 72.2 cm/s PV Peak Gradient 2.1 mmHg FINDINGS LEFT VENTRICLE Normal left ventricular size. Wall thickness is normal. The left ventricular systolic function is normal with an estimated ejection fraction of 65%. RIGHT VENTRICLE Normal right ventricular size and systolic function. LEFT ATRIUM The left atrial size is normal. RIGHT ATRIUM The right atrial size is normal. ATRIAL SEPTUM Normal atrial septal thickness without atrial level shunting by limited color doppler interrogation. AORTA The aortic root and proximal ascending aorta are normal in size on limited imaging. MITRAL VALVE Structurally normal mitral valve. No mitral valve stenosis or regurgitation. AORTIC VALVE Trileaflet aortic valve. No aortic valve stenosis or regurgitation. TRICUSPID VALVE There is trace tricuspid valve regurgitation. The estimated pulmonary arterial pressure is 23.7 mmHg. PULMONARY VALVE No pulmonary valve regurgitation or stenosis. VESSELS The inferior vena cava is normal in size. PERICARDIUM No pericardial effusion. Marie Bhagat MD, FACC (Electronically Signed) Final Date:24 July 2017 15:06
[2017-07-24] MEDS ORDERED: ATORVASTATIN 40 MG TAB PO SCH ×2 (21:00)
== END 2017-07-24 14:34 | disposition left against medical advice (07) | DRG 282 ==
LOC: PHED 11:04 → PHEDA 12:23 → HCIS 14:38
PROVIDERS: ADMIT Internal Medicine; ATTEND Internal Medicine
PROC: B2111ZZ Fluoroscopy of Multiple Coronary Arteries using Low Osmolar Contrast (ICD-10-PCS; 2017-07-23)
PROC: B2151ZZ Fluoroscopy of Left Heart using Low Osmolar Contrast (ICD-10-PCS; 2017-07-23)
PROC: B41F1ZZ Fluoroscopy of Right Lower Extremity Arteries using Low Osmolar Contrast (ICD-10-PCS; 2017-07-23)
PROC: 4A023N7 Measurement of Cardiac Sampling and Pressure, Left Heart, Percutaneous Approach (ICD-10-PCS; principal; 2017-07-23 17:00)
DX: I21.4 Non-ST elevation (NSTEMI) myocardial infarction (principal); I25.10 Atherosclerotic heart disease of native coronary artery without angina pectoris; E03.9 Hypothyroidism, unspecified; Z82.49 Family history of ischemic heart disease and other diseases of the circulatory system; Z87.891 Personal history of nicotine dependence
CPT/HCPCS: 71010; 80048; 80061; 82550; 84484; 85025; 85027; 85610; 85730; 93005; 93306; 93458; 93571; 99152; 99153; C1760; C1769; C1887; C1893; G0269; J1644; J2250; J3010; J7030; Q9967